=== PATIENT | male | born 1970 | race Caucasian/White ===

== ENCOUNTER 2019-01-31 13:44 | Emergency (ER) | payer MEDICAID ==
[~2019-01-31] VITALS: Ht 182.9 cm; Wt 108.0 kg
[2019-01-31 13:54] VITALS: BP 140/87
--- NOTE | 2019-01-31 14:01 | NUR ---
PT STATES HE HAS ONLY BEEN ON ELIQUIS FOR 3 DAYS. PT STATES "I WAS AT [facility] FOR IT AND THEY GAVE ME ELIQUIS AND SAID I COULD GO BACK TO WORK. IT JUST HURTS STILL." GIRLFRIEND STATES "HIS BROTHER HAD A PULMONARY EMBOLISM. THIS COULD BE ONE TOO." PT DENIES SOB AND CP. PARTIED EDUCATED REGARDING BLOOD CLOT AND PE. GIRLFRIEND NOT VERY PLEASED WITH EDUCATION. PT AND GIRLFRIEND TO LOBBY AT THIS TIME.
--- NOTE | 2019-01-31 14:04 | NUR ---
PT TO TRIAGE DOOR. PT STATES "I'M JUST GOING TO LEAVE."
== END 2019-01-31 14:06 | disposition left against medical advice (07) ==
LOC: ED 14:00
DX: Z53.21 Procedure and treatment not carried out due to patient leaving prior to being seen by health care provider (principal)

== ENCOUNTER 2019-02-28 10:57 | Emergency (ER) | payer MEDICAID ==
[~2019-02-28] VITALS: Ht 185.4 cm; Wt 108.7 kg
[2019-02-28 11:43] LABS: BASOPHILS # (AUTO) 0.03 x10^3/uL (0-0.1); BASOPHILS % (AUTO) 1 % (0-1); EOSINOPHILS # (AUTO) 0.26 x10^3/uL (0-0.4); EOSINOPHILS % (AUTO) 4 % (1-7); LYMPHOCYTES # (AUTO) 1.67 x10^3/uL (1-3.4); LYMPHOCYTES % (AUTO) 23 % (22-44); MD NO; MEAN CORPUSCULAR HEMOGLOBIN 29.3 pg (27.5-34.5); MEAN CORPUSCULAR HGB CONC 33.3 g/dL (33.2-36.2); MEAN CORPUSCULAR VOLUME 87.8 fL (81-97); MEAN PLATELET VOLUME 7.1 fL (7.4-10.4); MONOCYTES # (AUTO) 0.47 x10^3/uL (0.2-0.8); MONOCYTES % (AUTO) 7 % (2-9); NEUTROPHILS # (AUTO) 4.81 x10^3/uL (1.8-6.8); NEUTROPHILS % (AUTO) 66 % (42-75); PLATELET COUNT 225 x10^3/uL (130-400); RED BLOOD COUNT 5.63 x10^6/uL (4.38-5.82); RED CELL DISTRIBUTION WIDTH 13.9 % (9.4-14.8)
[2019-02-28 11:50] LABS: CHLORIDE 107 mmol/L (98-107)
[2019-02-28 11:56] LABS: CALCIUM 8.7 mg/dL (8.5-10.1)
[2019-02-28 12:05] LABS: ALANINE AMINOTRANSFERASE 52 U/L (12-78); ALBUMIN 3.9 g/dL (3.4-5.0); ALKALINE PHOSPHATASE 69 U/L (45-117); ANION GAP 4 mmol/L (5-15); CREATININE 0.98 mg/dL (0.7-1.3); TOTAL PROTEIN 7.5 g/dL (6.4-8.2); TROPONIN I < 0.015 ng/mL (0.000-0.045)
[2019-02-28] MEDS ORDERED: OMNIPAQUE 350 MG/ML, 100ML BOTTLE ONE (12:41)
--- NOTE | 2019-02-28 12:59 | NUR ---
PT BACK FROM CTA. VSS/UPDATED IN COMPUTER. MED REC COMPLETED. PT HAS NOT BEEN TAKING "BLOOD THINNER" FOR THREE DAYS, CAN'T REMEMBER NAME. CALL LIGHT WITHIN REACH.
--- NOTE | 2019-02-28 13:02 | NUR ---
CTA READ BACK, PT FOR RECHECK.
[2019-02-28 13:49] VITALS: BP 128/82
== END 2019-02-28 13:56 | disposition home or self-care (01) ==
LOC: ED 12:14
DX: L03.115 Cellulitis of right lower limb (principal); I82.411 Acute embolism and thrombosis of right femoral vein; I82.431 Acute embolism and thrombosis of right popliteal vein; Z86.718 Personal history of other venous thrombosis and embolism; M79.604 Pain in right leg
CPT/HCPCS: 36415; 71275; 80053; 83880; 84484; 85025; 93005; 93971; 99284; Q9967